=== PATIENT | female | born 1930 | race Two or more races ===

== ENCOUNTER 2018-05-22 19:14 | Inpatient (IN) | payer MEDICARE ==
[~2018-05-22] VITALS: Ht 142.2 cm; Wt 59.0 kg
[2018-05-22] MEDS ORDERED: LISINOPRIL10 MG ORAL (19:34)
[2018-05-22] MEDS ORDERED: METFORMIN HCL500 M1 ORAL (19:34)
[2018-05-22] MEDS ORDERED: FUROSEMIDE40 MG ORAL (19:34)
[2018-05-22] MEDS ORDERED: POTASSIUM CHLOR8 ME3 PO (19:34)
[2018-05-22] MEDS ORDERED: OMEPRAZOLE20 M2 ORAL (19:34)
[2018-05-22] MEDS ORDERED: LYRICA75 M1 ORAL (19:34)
[2018-05-22] MEDS ORDERED: NIFEDIPINE ER30 M2 ORAL (19:34)
[2018-05-22] MEDS ORDERED: ASPIRIN EC81 MG ORAL (19:34)
[2018-05-22] MEDS ORDERED: Sodium Chloride 500ML 500 ML IV ONE (19:44)
[2018-05-22] MEDS ORDERED: Isovue-300 100ml vial INJ PRN (19:45)
[2018-05-22] MEDS ORDERED: Morphine Sulfate 4mg/ml Inj IVP ONE ×2 (19:45→22:15)
[2018-05-22 20:00] VITALS: BP 133/53
--- NOTE | 2018-05-22 20:09 | Emergency Room Report ---
History of Present Illness General Chief Complaint: Diarrhea Source: Patient, Family Member Present Illness HPI Patient is an 88-year-old female who is complaining of abdominal pain nausea vomiting and diarrhea for the last 3 days. The patient's family states that the patient began complaining of diarrhea which then progressed with left lower quadrant abdominal pain and vomiting. They deny any fevers or chills. He denies any prior abdominal surgeries. There are no worsening or alleviating factors. The pain does radiate to the left back.The patient is also noted incidentally to have 2 ulcers to the feet one on the lateral aspect of the right and one on the lateral aspect of the left foot. Per the daughter these are both under the care of a chargeback specialist however have not healed over the last 3 years since the patient first arrived from [place]. Allergies: Coded Allergies: No Known Allergies (Unverified , 05/22/18) Patient History Past Medical History: DM, HTN Past Surgical History: none Pertinent Family History: none Social History: Denies: smoking, alcohol use, drug use Nursing Documentation-[facility] Hx Hypertension: Yes Hx Diabetes: Yes Review of Systems Constitutional: Denies: no symptoms, see HPI, chills, sweats, fever, malaise, weakness, other Eye: Denies: no symptoms, see HPI, eye pain, blurred vision, tearing, double vision, nose pain, nose congestion, acuity changes, discharge, other ENT: Denies: no symptoms, see HPI, ear pain, ear discharge, nose pain, nose congestion, throat pain, throat swelling, mouth pain, hearing loss, nasal discharge, other Respiratory: Denies: no symptoms, see HPI, cough, orthopnea, shortness of breath, stridor, wheezing, DAI, sputum, other Cardiovascular: Denies: no symptoms, see HPI, chest pain, edema, palpitations, syncope, PND, other Gastrointestinal: Reports: abdominal pain, diarrhea, nausea, vomiting; Denies: no symptoms, see HPI, constipation, melena, hematemesis, other Genitourinary: Denies: no symptoms, see HPI, discharge, dysuria, frequency, hematuria, pain, retention, incontinence, urgency, vag bleed/dc, other Musculoskeletal: Denies: no symptoms, see HPI, back pain, gout, joint pain, joint swelling, muscle pain, muscle stiffness, other Skin: Reports: see HPI; Denies: no symptoms, rash, change in color, change in hair/nails, dryness, lesions, other Neurological: Denies: no symptoms, see HPI, headache, numbness, paresthesia, seizure, tingling, tremors, focal weakness, syncope, dizziness, other Endocrine: Denies: no symptoms, see HPI, excessive sweating, flushing, intolerance to temperature, increased thirst, increased urine, unexplained weight loss, other Hematologic/Lymphatic: Denies: no symptoms, see HPI, anemia, blood clots, easy bleeding, easy bruising, swollen glands, diathesis, other Physical Exam Vital Signs Date Time Temp Pulse Resp B/P (MAP) Pulse Ox O2 Delivery O2 Flow Rate FiO2 05/22/18 19:17 97.7 78 16 107/60 92 Room Air 97.7 Sp02 EP Interpretation: reviewed, normal General Appearance: no apparent distress, alert, GCS 15, non-toxic Head: normocephalic, atraumatic Eyes: bilateral eye normal inspection, bilateral eye PERRL ENT: hearing grossly normal, normal pharynx, no angioedema, normal voice Neck: full range of motion, supple/symm/no masses Respiratory: chest non-tender, lungs clear, normal breath sounds, speaking full sentences Cardiovascular #1: regular rate, rhythm, no edema Cardiovascular #2: 2+ carotid (R), 2+ carotid (L), 2+ radial (R), 2+ radial (L) , 2+ dorsalis pedis (R), 2+ dorsalis pedis (L) Gastrointestinal: soft, no guarding, no rebound, other - Tenderness to the left lower and left upper quadrant of the abdomen with no guarding or rebound. Rectal: deferred Genitourinary: normal inspection, no CVA tenderness Musculoskeletal: back normal, gait/station normal, normal range of motion, non- tender, calf tenderness Neurologic: alert, oriented x3, responsive, motor strength/tone normal, sensory intact, speech normal Psychiatric: judgement/insight normal, memory normal, mood/affect normal, no suicidal/homicidal ideation Reflexes: 3+ bicep (R), 3+ bicep (L), 3+ tricep (R), 3+ tricep (L), 3+ knee (R) , 3+ knee (L) Skin: normal color, no rash, warm/dry, well hydrated, other - stage II ulright lateral foot, [facility] Lymphatic: no adenopathy Medical Decision Making EKG Diagnostic Results EP Interpretation: EKG at 1943-sinus rhythm, rate 76, normal axis, no acute ST or T-wave abnor Last Vital Signs Date Time Temp Pulse Resp B/P (MAP) Pulse Ox O2 Delivery O2 Flow Rate FiO2 05/22/18 19:17 97.7 78 16 107/60 92 Room Air 97.7 Thee Dawson MD May 22, 2018 20:09
[2018-05-22 20:29] LABS: BASOPHILS % (AUTO) 0.9 % (0.0-2.0); EOSINOPHILS % (AUTO) 3.1 % (0.0-3.0); HEMOGLOBIN 12.4 G/DL (12.0-16.0); LYMPHOCYTES % (AUTO) 16.3 % (20.0-45.0); MEAN CORPUSCULAR VOLUME 86 FL (80-99); MONOCYTES % (AUTO) 7.1 % (1.0-10.0); NEUTROPHILS % (AUTO) 72.6 % (45.0-75.0); PLATELET COUNT 259 K/UL (150-450); RED BLOOD COUNT 4.33 M/UL (4.20-5.40); RED CELL DISTRIBUTION WIDTH 12.5 % (11.6-14.8); WHITE BLOOD COUNT 10.8 K/UL (4.8-10.8)
[2018-05-22 20:37] LABS: ANION GAP 8 mmol/L (5-15); BLOOD UREA NITROGEN 70 mg/dL (7-18); CALCIUM 9.2 MG/DL (8.5-10.1); CARBON DIOXIDE 26 MMOL/L (21-32); CHLORIDE 99 MMOL/L (98-107); CREATININE 1.7 MG/DL (0.55-1.30); POTASSIUM 4.6 MMOL/L (3.5-5.1); SODIUM 133 MMOL/L (136-145)
[2018-05-22 20:51] LABS: ALANINE AMINOTRANSFERASE 17 U/L (12-78); ALBUMIN 3.4 G/DL (3.4-5.0); ALBUMIN/GLOBULIN RATIO 0.8 (1.0-2.7); ALKALINE PHOSPHATASE 119 U/L (46-116); ASPARTATE AMINO TRANSFERASE 18 U/L (15-37); BILIRUBIN,TOTAL 0.3 MG/DL (0.2-1.0); CKMB 0.5 NG/ML (0.0-3.6)
[2018-05-22 21:00] VITALS: BP 128/60
[2018-05-22 21:41] LABS: APPEARANCE,URINE CLEAR; BILIRUBIN, URINE NEGATIVE (NEGATIVE); COLOR,URINE PALE YELLOW; GLUCOSE, URINE (UA) NEGATIVE (NEGATIVE); KETONES,URINE NEGATIVE (NEGATIVE); LEUKOCYTE ESTERASE ,URINE NEGATIVE (NEGATIVE); NITRITE,URINE NEGATIVE (NEGATIVE); PH,URINE 5 (4.5-8.0); PROTEIN,URINE NEGATIVE (NEGATIVE); UROBILINOGEN,URINE NORMAL MG/DL (0.0-1.0)
[2018-05-22 22:07] VITALS: BP 128/76
[2018-05-23 00:12] VITALS: BP 90/46
[2018-05-23] MEDS ORDERED: Sodium Chloride 500ML 500 ML IV ONE (00:15)
[2018-05-23] MEDS: Sodium Chloride 500ML 550 ML IV SCH ×3 (02:24→05:45)
[2018-05-23 03:22] VITALS: BP 101/47
[2018-05-23] MEDS ORDERED: Milk of Magnesia 30ml Ud ORAL PRN (06:45)
[2018-05-23] MEDS ORDERED: Zolpidem 5mg tab ORAL PRN (06:45)
[2018-05-23 08:00] VITALS: BP 112/57
[2018-05-23] MEDS ORDERED: Lisinopril 10mg tab ORAL SCH (09:00)
[2018-05-23] MEDS ORDERED: metFORMIN 500mg tab ORAL SCH (09:00)
[2018-05-23] MEDS ORDERED: Furosemide 40mg tab ORAL SCH (09:00)
[2018-05-23 09:08] LABS: BASOPHILS % (AUTO) 0.6 % (0.0-2.0); EOSINOPHILS % (AUTO) 0.8 % (0.0-3.0); HEMATOCRIT 38.8 % (37.0-47.0); HEMOGLOBIN 12.9 G/DL (12.0-16.0); LYMPHOCYTES % (AUTO) 10.1 % (20.0-45.0); MEAN CORPUSCULAR VOLUME 87 FL (80-99); MONOCYTES % (AUTO) 3.9 % (1.0-10.0); NEUTROPHILS % (AUTO) 84.6 % (45.0-75.0); PLATELET COUNT 297 K/UL (150-450); RED BLOOD COUNT 4.44 M/UL (4.20-5.40); RED CELL DISTRIBUTION WIDTH 12.6 % (11.6-14.8); WHITE BLOOD COUNT 11.7 K/UL (4.8-10.8)
[2018-05-23] MEDS: Pantoprazole Inj IVP SCH (09:14)
[2018-05-23] MEDS: Aspirin EC 81mg tab ORAL SCH (09:14)
[2018-05-23] MEDS: Lyrica 75mg cap ORAL SCH (09:15)
[2018-05-23] MEDS: Heparin 5000 units/ml inj SUBQ SCH ×2 (09:20→20:57)
--- NOTE | 2018-05-23 09:21 | Diagnostic Imaging Report ---
Indication: Abdominal pain Technique: Spiral acquisitions obtained through the abdomen and pelvis. No oral contrast utilized, per emergency room physician request No IV contrast utilized, per referring physician request.. Multiplanar reconstructions were generated. Total dose length product 651.83 mGycm. CTDIvol(s) 12.77 mGy. Dose reduction achieved using automated exposure control Comparison: None Findings: Normal appendix. There are questionably colonic diverticula. No evidence of diverticulitis. No small bowel distention. No free or loculated intraperitoneal air or fluid is evident. Distal esophagus, stomach, duodenum are unremarkable. There is extensive arterial wall calcification. Lack of IV contrast limits assessment of the solid organs. The gallbladder, liver, bile ducts, pancreas, spleen, adrenals are unremarkable. There is mild bilateral hydronephrosis, and mild ectasia of the right ureter. The left ureter is not ectatic. No downstream obstructive lesion is demonstrated. No renal or ureteral calculi. No gross renal parenchymal abnormality. The bladder is somewhat distended. The uterus contains arcuate artery calcifications. No pelvic mass or adenopathy. There is edema of the bilateral hip region subcutaneous fat which is fairly focal. There is also some retrosacral and retrococcygeal edema or thickening which could represent decubitus changes. There are degenerative changes of the lumbosacral spine. There is anterior offset of L4 on L5, with out evidence of spondylolysis. The bones appear osteoporotic. The included lung bases demonstrate posterior dependent atelectatic changes. Impression: Mild bilateral hydronephrosis and mild right ureteral ectasia, significance uncertain. Presence of distended bladder indicates this could be due to chronic bladder distention. No definite acute abnormality otherwise Equivocal colonic diverticulosis. No evidence of diverticulitis Possible decubitus changes of the retrosacral and retrococcygeal region Bilateral hip region subcutaneous fat edema could also represent decubitus changes. Correlate with clinical findings Extensive degenerative spondylosis. L4 on L5 spondylolisthesis without evidence of spondylolysis This agrees with the preliminary interpretation provided overnight by [facility] teleradiology service. The CT scanner at [facility] is accredited by the [employer] and the scans are performed using protocols designed to limit radiation exposure to as low as reasonably achievable to attain images of sufficient resolution adequate for diagnostic evaluation.
[2018-05-23 09:40] LABS: ANION GAP 12 mmol/L (5-15); BLOOD UREA NITROGEN 68 mg/dL (7-18); CARBON DIOXIDE 23 MMOL/L (21-32); CHLORIDE 102 MMOL/L (98-107); CREATININE 1.7 MG/DL (0.55-1.30); POTASSIUM 4.6 MMOL/L (3.5-5.1); SODIUM 137 MMOL/L (136-145)
[2018-05-23 12:00] VITALS: BP 115/60
--- NOTE | 2018-05-23 12:00 | History and Physical Report ---
DATE OF ADMISSION: 05/22/2018 REASON FOR ADMISSION: Renal failure. HISTORY OF PRESENT ILLNESS: This is an 88-year-old female, who is fairly poor historian, presents with abdominal pain, nausea, and vomiting for the past three days. The patient with left lower quadrant abdominal discomfort. No fevers or chills. The patient with history of foot ulcers as well and she is under the care of early intervention specialist with poor healing apparently over the past three years. PAST MEDICAL HISTORY: Notable for diabetes and hypertension. MEDICATIONS: Reviewed. ALLERGIES: Reviewed. SOCIAL HISTORY: Nonsmoker and nondrinker. The patient lives with family. REVIEW OF SYSTEMS: As above. PHYSICAL EXAMINATION: GENERAL: A well-developed female, frail, elderly. VITAL SIGNS: Otherwise reviewed, bradycardic at 54. The patient is currently afebrile. HEENT: Otherwise negative. LUNGS: Fairly clear and symmetric. CARDIAC: Normal S1 and S2. Regular rate and rhythm. ABDOMEN: Overall fairly soft. No guarding. Some tenderness in the left lower quadrant, left upper quadrant. No rebound. EXTREMITIES: No cyanosis or clubbing. The wounds in the foot noted and reviewed. LABORATORY DATA: Otherwise noted and reviewed. IMPRESSION: 1. Acute renal failure, likely prerenal in nature. 2. Mild hyperglycemia. 3. Diabetes. 4. Hypertension. 5. Diabetic foot ulcers. RECOMMENDATIONS: Supportive care. Wound care. Hold Lasix for now and maintain IV hydration. Follow clinically with lab data , PT evaluation, wound care evaluation, and proceed with discharge planning once the patient is improved. Henok Garcia M.D. DR: LEYDI JOB#: [id number] CC: ELISSA
--- NOTE | 2018-05-23 14:15 | Consultation ---
DATE OF CONSULTATION: 05/23/2018 CONSULTING PHYSICIAN: Arturo Bowman M.D. REFERRING PHYSICIAN: Henok Garcia M.D. REASON FOR CONSULTATION: 1. Acute kidney injury. 2. Dehydration. HISTORY OF PRESENT ILLNESS: The patient is a pleasant 88-year-old female, who was admitted overnight for further evaluation and care of abdominal pain, nausea, vomiting, and diarrhea, that has been going on for the last three days. The patient started having diarrhea, which has progressively worsened to left lower quadrant pain and vomiting. The patient does not have any abdominal surgery. Denies any night sweats, fevers, or chills. She is still feeling ill. The patient does have ulcers on the bottom of her feet, which is being managed by wound care. However, they have not healed and the patient has just recently arrived back from [place]. ALLERGIES: No known drug allergies. PAST MEDICAL HISTORY: 1. Foot ulcers. 2. Diabetes mellitus. 3. Hypertension. PAST SURGICAL HISTORY: None. FAMILY HISTORY: Positive for hypertension and diabetes. SOCIAL HISTORY: No tobacco, alcohol, or illicit drug use. REVIEW OF SYSTEMS: NEUROLOGIC: The patient denies headache, change in vision, syncope, or presyncopal episodes. CARDIOVASCULAR: No current chest pain, palpitations, or angina. PULMONARY: No difficulty breathing, productive cough or sputum. GASTROINTESTINAL/GENITOURINARY: Nausea, vomiting, and diarrhea. ENDOCRINOLOGY: No night sweats, fevers, or chills. MUSCULOSKELETAL: The patient feeling weak, tired, and fatigued. PHYSICAL EXAMINATION: VITAL SIGNS: Blood pressure 101/47, respiratory rate 16, pulse 54, and temperature 98.0. GENERAL: The patient is awake, alert, in mild distress. HEENT: Extraocular muscles intact. No lymphadenopathy. Oropharyngeal mucosa clear and dry. CARDIOVASCULAR: S1 and S2. No rubs or gallops. PULMONARY: Clear to auscultation bilaterally. No rales, rhonchi, or wheezes. ABDOMEN: Nondistended, nontender. EXTREMITIES: No edema noted. LABORATORY DATA: Laboratories dated May 22, 2018, sodium 133, potassium 4.6, BUN 70, creatinine 1.7, glucose 148, calcium 9.2. Hemoglobin 12.4, white cell count 10.8, and platelet count 259. ASSESSMENT AND PLAN: 1. Acute kidney injury secondary to multifactorial acute tubular necrosis from volume depletion and ischemic ATN from hypotension. At this time, we will discontinue lisinopril. Avoid IV contrast if possible. Renal ultrasound to rule out the possibility of obstructive uropathy. At this time, I agree with hydration and avoidance of any further nephrotoxins. 2. Abdominal pain, nausea, and vomiting. Pain management per primary care physician. Continue IV fluids. 3. Hypotension. At this time, we will discontinue lisinopril and place hold parameters and antihypertensive medications. 4. Diabetes mellitus. Defer management to primary care physician. Let me take this opportunity to thank Dr. Garcia. I will continue to follow this patient on a daily basis. I appreciate her confidence in my nephrological service. Arturo Bowman MD DR: FAVIOLA JOB#: [id number] CC: ELISSA
[2018-05-23 16:00] VITALS: BP 120/62
[2018-05-23 20:00] VITALS: BP_SYST 128; BP_SYST 142; BP_DIAS 60; BP_DIAS 72
--- NOTE | 2018-05-23 20:21 | Consultation ---
History of Present Illness General Date patient seen: May 23, 2018 Chief Complaint: Diarrhea Reason for Consultation: bilateral lower extremity ulcers Present Illness HPI 88 year old male with multiple medical comorbidities presented with dehydration , nausea, emesis, diarrhea, and poor healing foot wounds. states he has recently returned from [place] and noted above symptoms so came to ED for evaluation. upon admission noted to have lower extremity wounds. states present for more than two years without significant improvement. has been seeing a internet specialist who applies ointment. surgery called to evaluate and help with management of wounds. patient seen, chart reviewed, patient examined. Allergies: Coded Allergies: No Known Allergies (Unverified , 05/22/18) Medication History Scheduled Aspirin Ec* (Aspirin Ec*), 81 MG ORAL DAILY, (Reported) Furosemide* (Lasix*), 40 MG ORAL DAILY, (Reported) Lisinopril* (Lisinopril*), 10 MG ORAL DAILY, (Reported) Metformin Hcl* (Metformin Hcl*), 500 MG ORAL TWICE A DAY, (Reported) Nifedipine Er* (Nifedipine Er*), 30 MG ORAL DAILY, (Reported) Omeprazole (Omeprazole), 20 MG ORAL DAILY, (Reported) Potassium Chloride (Potassium Chloride), 8 MEQ PO DAILY, (Reported) Pregabalin* (Lyrica*), 75 MG ORAL BID, (Reported) Patient History History Provided By: Patient, Medical Record, PMD Healthcare decision maker Resuscitation status Advanced Directive on File Past Medical/Surgical History Past Medical/Surgical History: (1) Ulcer of left foot (2) Ulcer of right heel (3) Diarrhea (4) Renal failure Review of Systems All Other Systems: negative except mentioned in HPI Physical Exam General Appearance: no apparent distress, alert Lines, tubes and drains: peripheral HEENT: atraumatic, mucous membranes moist, PERRL Neck: non-tender Respiratory/Chest: normal breath sounds, no respiratory distress, no accessory muscle use Cardiovascular/Chest: normal peripheral pulses, normal rate Abdomen: soft, no organomegaly, no mass Extremities: non-tender, other - pulses noted. ulcers as seen in photos Skin Exam: warm/dry Neurologic: alert, oriented x 3 Last 24 Hour Vital Signs Date Time Temp Pulse Resp B/P (MAP) Pulse Ox O2 Delivery O2 Flow Rate FiO2 05/23/18 16:00 97.9 74 18 120/62 (81) 97 97.9 05/23/18 12:00 97.4 72 18 115/60 (78) 96 97.4 05/23/18 09:14 70 112/57 05/23/18 08:45 Room Air 05/23/18 08:00 97.7 70 20 112/57 (75) 95 97.7 05/23/18 07:55 Room Air 05/23/18 03:34 98.0 54 16 101/47 100 Room Air 98.0 05/23/18 03:22 98.0 54 16 101/47 100 Room Air 98.0 05/23/18 00:12 70 14 90/46 99 Nasal Cannula 2.0 05/22/18 22:49 98.0 05/22/18 22:19 99.0 05/22/18 22:07 62 14 128/76 94 Nasal Cannula 2.0 05/22/18 21:00 99.0 64 18 128/60 94 Room Air 99.0 05/22/18 20:37 99.4 Intake and Output 05/22/18 05/23/18 19:00 07:00 Intake Total 1000 ml Balance 1000 ml IV Total 1000 ml Laboratory Tests Test 05/22/18 21:15 05/23/18 08:35 Urine Color Pale yellow Urine Appearance Clear Urine pH 5 (4.5-8.0) Urine Specific Aubrey 1.010 (1.005-1.035) Urine Protein Negative (NEGATIVE) Urine Glucose (UA) Negative (NEGATIVE) Urine Ketones Negative (NEGATIVE) Urine Occult Blood 1+ (NEGATIVE) H Urine Nitrite Negative (NEGATIVE) Urine Bilirubin Negative (NEGATIVE) Urine Urobilinogen Normal MG/DL (0.0-1.0) Urine Leukocyte Esterase Negative (NEGATIVE) Urine RBC 0-2 /HPF (0 - 2) Urine WBC 0 /HPF (0 - 2) Urine Squamous Epithelial Cells None /LPF (NONE/OCC) Urine Amorphous Sediment Few /LPF (NONE) H Urine Bacteria Occasional /HPF (NONE) White Blood Count 11.7 K/UL (4.8-10.8) H Red Blood Count 4.44 M/UL (4.20-5.40) Hemoglobin 12.9 G/DL (12.0-16.0) Hematocrit 38.8 % (37.0-47.0) Mean Corpuscular Volume 87 FL (80-99) Mean Corpuscular Hemoglobin 29.0 PG (27.0-31.0) Mean Corpuscular Hemoglobin Concent 33.3 G/DL (32.0-36.0) Red Cell Distribution Width 12.6 % (11.6-14.8) Platelet Count 297 K/UL (150-450) Mean Platelet Volume 7.1 FL (6.5-10.1) Neutrophils (%) (Auto) 84.6 % (45.0-75.0) H Lymphocytes (%) (Auto) 10.1 % (20.0-45.0) L Monocytes (%) (Auto) 3.9 % (1.0-10.0) Eosinophils (%) (Auto) 0.8 % (0.0-3.0) Basophils (%) (Auto) 0.6 % (0.0-2.0) Sodium Level 137 MMOL/L (136-145) Potassium Level 4.6 MMOL/L (3.5-5.1) Chloride Level 102 MMOL/L (98-107) Carbon Dioxide Level 23 MMOL/L (21-32) Anion Gap 12 mmol/L (5-15) Blood Urea Nitrogen 68 mg/dL (7-18) H Creatinine 1.7 MG/DL (0.55-1.30) H Estimat Glomerular Filtration Rate mL/min (>60) Glucose Level 124 MG/DL (74-106) H Calcium Level 9.0 MG/DL (8.5-10.1) Height (Feet): 4 Height (Inches): 8.00 Weight (Pounds): 130 Medications Current Medications Medications (Trade) Dose Ordered Sig/Jeanna Route PRN Reason Start Time Stop Time Status Last Admin Dose Admin Acetaminophen (Tylenol) 650 mg Q4H PRN ORAL Mild Pain/Temp > 100.5 05/23/18 06:45 06/22/18 06:44 Al Hydroxide/Mg Hydroxide (Mylanta) 30 ml Q4H PRN ORAL Abdominal cramps 05/23/18 06:45 06/22/18 06:44 Aspirin (Ecotrin) 81 mg DAILY ORAL 05/23/18 09:00 06/22/18 08:59 05/23/18 09:14 Heparin Sodium (Porcine) (Heparin 5000 units/ml) 5,000 units EVERY 12 HOURS SUBQ 05/23/18 09:00 06/22/18 08:59 05/23/18 09:20 Iopamidol (Isovue-300 100ml) 100 ml NOW PRN INJ Radiology Procedure 05/22/18 19:45 Magnesium Hydroxide (Mom) 30 ml DAILYPRN PRN ORAL Constipation 05/23/18 06:45 06/22/18 06:44 Nifedipine (Procardia XL) 30 mg DAILY ORAL 05/23/18 09:00 06/22/18 08:59 05/23/18 09:14 Pantoprazole (Protonix) 40 mg DAILY IVP 05/23/18 09:00 06/22/18 08:59 05/23/18 09:14 Pregabalin (Lyrica) 75 mg DAILY ORAL 05/23/18 09:00 06/22/18 08:59 05/23/18 09:15 Sodium Chloride 1,000 ml @ 100 mls/hr Q10H IV 05/23/18 07:00 06/22/18 06:59 05/23/18 17:06 Zolpidem Tartrate (Ambien) 5 mg HSPRN PRN ORAL Insomnia 05/23/18 06:45 05/30/18 06:44 Assessment/Plan Problem List: (1) Ulcer of left foot Assessment & Plan: 2 cm lateral left foot ulcer unstageable with eschar cap. no drainage. no signs of infection. no odor. chronic skin protectant. foam protective dressing. plain films ICD Codes: L97.529 - Non-pressure chronic ulcer of other part of left foot with unspecified severity SNOMED: [id number] Qualifiers: Qualified Codes: L97.529 - Non-pressure chronic ulcer of other part of left foot with unspecified severity (2) Ulcer of right heel Assessment & Plan: right heel two ulcers 2cm each next to each other unstageable with necrotic eschar cap no signs of infection. no odor. no drainage chronic. plain films. skin protectant. foam protective dressing. ICD Codes: L97.419 - Non-pressure chronic ulcer of right heel and midfoot with unspecified severity SNOMED: [id number] Qualifiers: Qualified Codes: L97.419 - Non-pressure chronic ulcer of right heel and midfoot with unspecified severity Status: stable Jelani Delcid May 23, 2018 20:21
[2018-05-24] VITALS: BP 130/58
--- NOTE | 2018-05-24 01:15 | Consultation ---
DATE OF CONSULTATION: 05/23/2018 UROLOGY CONSULTATION ATTENDING/CONSULTING PHYSICIAN: Henok Garcia M.D. CHIEF COMPLAINT/HISTORY OF PRESENT ILLNESS: I was asked by Dr. Garcia to evaluate this 88-year-old female regarding history of postvoid residual noted on CT scan and renal ultrasound. Briefly, the patient has a history of nausea, vomiting, and diarrhea, which has been going on for 3 to 4 days. She presented to the hospital in the setting of the same. She was found to have evidence of renal insufficiency and dehydration. A CT scan revealed somewhat moderately distended bladder with mild bilateral hydroureteronephrosis. A renal ultrasound revealed a free water volume of 500 mL and a postvoid residual of 300 mL. As such, I was asked to evaluate the patient. The patient reports a history of some difficulty emptying her bladder at times. She is not a very good historian. I cannot get much information from her. Most of this is gathered from the chart. PAST MEDICAL HISTORY: 1. Diabetes mellitus. 2. Hypertension. 3. Foot ulcerations. PAST SURGICAL HISTORY: Apparently none. MEDICATIONS: Please see the chart for current medications and administration details. ALLERGIES: No known drug allergies. SOCIAL HISTORY: Unremarkable for tobacco, alcohol, or drug use. FAMILY HISTORY: Notable for hypertension and diabetes. REVIEW OF SYSTEMS: A 12-system review of systems was essentially unremarkable outside of what is described above. PHYSICAL EXAMINATION: GENERAL: The patient is a very elderly female, awake and alert, somewhat oriented, and in no obvious distress. HEENT: NC/AT. EOMI. NECK: Supple. Full range of motion. Oropharynx clear. CHEST: Within normal limits. ABDOMEN: Soft, nontender, and nondistended. EXTREMITIES: Warm and well perfused. No cyanosis, clubbing, or edema. BACK: No CVA tenderness to percussion. NEUROLOGIC: Grossly nonfocal. LABORATORY DATA: White blood cell count 11.7, hematocrit 38.8, and platelets 297,000. Sodium 137, potassium 4.6, chloride 102, bicarbonate 23, BUN 68, creatinine 1.7, glucose 124, and calcium 9.0. LFTs within normal limits. Urinalysis, specific gravity 1.010 and pH 5.0. Dip test notable for 1+ occult blood. Microanalysis is essentially unremarkable. DIAGNOSTIC IMAGING: CT scan of the abdomen and pelvis revealed mild bilateral hydronephrosis and mild right ureteral ectasia of uncertain significance. There is moderate amount of bladder distention. No acute abnormalities otherwise noted. ASSESSMENT AND PLAN: In summary, the patient is an 88-year-old diabetic female with a history of nausea, vomiting, and diarrhea for several days duration. She presented with evidence of hypovolemia and acute tubular necrosis secondary to hypotension. She is receiving fluids for the same. Physical exam is essentially unremarkable. Laboratory data is notable for creatinine of 1.7 and a negative urinalysis. Diagnostic imaging reveals the findings described above. It is likely that this patient's renal sufficiency stems from her acute nausea, vomiting, and diarrhea and dehydration/hypotension. A postvoid residual of 300 mL while not completely insignificant would not likely drop the patient into renal failure. If the patient has some difficulty emptying her bladder, she may have some degree of neurogenic bladder secondary to diabetes. This could be evaluated as an outpatient with urodynamics if clinically warranted. For the time being, I do not feel that she needs to have a catheter in place nor is there any need for urgent genitourinary intervention. The mild bilateral hydronephrosis and ureteral ectasia are not significant findings. Thank you for allowing me to participate in the care of this unfortunate lady. Please do not hesitate to contact me for any questions that you may further have regarding her care. I will see her with you as needed. Trev Isaacs M.D. DR: SANKET JOB#: [id number] CC:
[2018-05-24 04:00] VITALS: BP 101/51
[2018-05-24 07:06] LABS: ANION GAP 7 mmol/L (5-15); BLOOD UREA NITROGEN 66 mg/dL (7-18); CALCIUM 8.3 MG/DL (8.5-10.1); CARBON DIOXIDE 25 MMOL/L (21-32); CHLORIDE 106 MMOL/L (98-107); POTASSIUM 4.8 MMOL/L (3.5-5.1); SODIUM 138 MMOL/L (136-145)
[2018-05-24 08:00] VITALS: BP 99/41
[2018-05-24] MEDS: Pantoprazole Inj IVP SCH (08:55)
[2018-05-24] MEDS: Aspirin EC 81mg tab ORAL SCH (08:57)
[2018-05-24] MEDS: Lyrica 75mg cap ORAL SCH (08:58)
[2018-05-24] MEDS: Heparin 5000 units/ml inj SUBQ SCH (09:00)
--- NOTE | 2018-05-24 09:24 | Nephrology Progress Note ---
Assessment/Plan Assessment/Plan 1. DERRICK- multifact ATN (vol dep/hypotension) and component of obstructive uropathy - Cr at 2, IVF's and place purvis 2. Mild B/L hydro with tortuous right ureter and distended bladder - place purvis and then repeat Renal US 3. N/V- per PCP 4. Dehydration/Hypotension- IVF's and Lisinopril stopped Subjective Date patient seen: May 24, 2018 Time patient seen: 09:21 ROS Limited/Unobtainable: Yes Allergies: Coded Allergies: No Known Allergies (Unverified , 05/22/18) All Systems: reviewed and negative except above Subjective Son at bedside. Patient in no overt distress Objective Last 24 Hour Vital Signs Date Time Temp Pulse Resp B/P (MAP) Pulse Ox O2 Delivery O2 Flow Rate FiO2 05/24/18 08:56 54 99/41 05/24/18 04:00 98.6 59 18 101/51 (68) 100 98.6 05/24/18 00:00 98.8 71 18 130/58 (82) 98 98.8 05/23/18 21:00 Room Air 05/23/18 20:00 98.4 79 18 142/60 (87) 95 98.4 05/23/18 16:00 97.9 74 18 120/62 (81) 97 97.9 05/23/18 12:00 97.4 72 18 115/60 (78) 96 97.4 Intake and Output 05/23/18 05/24/18 18:59 06:59 Intake Total 1300 ml 1200 ml Balance 1300 ml 1200 ml Intake Oral 400 ml IV Total 900 ml 1200 ml # Voids 2 5 Laboratory Tests 05/24/18 06:00: Sodium Level 138, Potassium Level 4.8, Chloride Level 106, Carbon Dioxide Level 25, Anion Gap 7, Blood Urea Nitrogen 66H, Creatinine 2.0H, Estimat Glomerular Filtration Rate , Glucose Level 166H, Calcium Level 8.3L Height (Feet): 4 Height (Inches): 8.00 Weight (Pounds): 130 General Appearance: WD/WN, no apparent distress EENT: PERRL/EOMI, normal ENT inspection Neck: non-tender, normal alignment Cardiovascular: normal peripheral pulses, normal rate Respiratory/Chest: chest wall non-tender, lungs clear Abdomen: normal bowel sounds, non tender, soft Edema: no edema noted Arm (L), no edema noted Arm (R), no edema noted Leg (L), no edema noted Leg (R), no edema noted Pedal (L), no edema noted Pedal (R), no edema noted Generalized Arturo Bowman M.D. May 24, 2018 09:24
--- NOTE | 2018-05-24 10:01 | Diagnostic Imaging Report ---
Indication:Elevated Bun and Creatinine. Technique: Grayscale and duplex Doppler imaging of the kidneys performed. Comparison: None Findings: There is bilateral hydronephrosis mild to moderate in degree. Bladder is distended by about 500 cc. Patient was not able to void. Right kidney is 9.6 cm. Left kidney 11.3 cm. IVC is unremarkable. IMPRESSION: Bilateral hydronephrosis probably on the basis of bladder outlet impediments or obstruction. Suggest Emmanuel catheter placement and clinical evaluation
--- NOTE | 2018-05-24 10:26 | General Progress Note ---
Assessment/Plan Assessment/Plan IMPRESSION: 1. CRF 2. Mild hyperglycemia. 3. Diabetes. 4. Hypertension. 5. Diabetic foot ulcers. PLAN d/w family needs urology and renal follow up they are aware also explained to hold procardia and metformin with renal function and low bp family aware foot care return to ER if any recurrence of symptoms findings discussed and are chronic cleared by urology Subjective Allergies: Coded Allergies: No Known Allergies (Unverified , 05/22/18) Subjective overall comfortable Objective Last 24 Hour Vital Signs Date Time Temp Pulse Resp B/P (MAP) Pulse Ox O2 Delivery O2 Flow Rate FiO2 05/24/18 08:56 54 99/41 05/24/18 08:30 Room Air 05/24/18 08:00 98.2 54 19 99/41 (60) 96 98.2 05/24/18 04:00 98.6 59 18 101/51 (68) 100 98.6 05/24/18 00:00 98.8 71 18 130/58 (82) 98 98.8 05/23/18 21:00 Room Air 05/23/18 20:00 98.4 79 18 142/60 (87) 95 98.4 05/23/18 16:00 97.9 74 18 120/62 (81) 97 97.9 05/23/18 12:00 97.4 72 18 115/60 (78) 96 97.4 Intake and Output 05/23/18 05/24/18 19:00 07:00 Intake Total 1300 ml 1200 ml Balance 1300 ml 1200 ml Intake Oral 400 ml IV Total 900 ml 1200 ml # Voids 2 5 Laboratory Tests 05/24/18 06:00: Sodium Level 138, Potassium Level 4.8, Chloride Level 106, Carbon Dioxide Level 25, Anion Gap 7, Blood Urea Nitrogen 66H, Creatinine 2.0H, Estimat Glomerular Filtration Rate , Glucose Level 166H, Calcium Level 8.3L Height (Feet): 4 Height (Inches): 8.00 Weight (Pounds): 130 Objective GENERAL: A well-developed female, frail, elderly. HEENT: Otherwise negative. LUNGS: Fairly clear and symmetric. CARDIAC: Normal S1 and S2. Regular rate and rhythm. ABDOMEN: Overall fairly soft. No guarding. Some tenderness in the left lower quadrant, left upper quadrant. No rebound. EXTREMITIES: No cyanosis or clubbing. The wounds in the foot noted and reviewed. Henok Garcia MD May 24, 2018 10:26
--- NOTE | 2018-05-24 10:48 | Diagnostic Imaging Report ---
Indication: Foot pain Comparison: None Findings: 2 views of the left foot were obtained. There is irregularity of the neck of the fifth metatarsal consistent with fracture. Correlate clinically. Soft tissue swelling noted. Hammertoes are present. The phalanges are not evaluated well on this exam. Bones are osteopenic. Vascular calcifications are present. IMPRESSION: Suspected fracture of the distal fifth metatarsal. Correlate clinically
--- NOTE | 2018-05-24 10:49 | Diagnostic Imaging Report ---
Indication: Foot Pain Comparison: None Findings: 2 views of the right foot were obtained. The bones are osteopenic. There is angulation and irregularity at the neck of the fifth metatarsal and the neck of the third metatarsal. Findings are consistent with fractures acuity indeterminate. Vascular calcifications are present. The study is limited. IMPRESSION: Suspected fractures involving the distal aspects of the third and fifth metatarsals. Correlate clinically. Study limited by osteoporosis and limited views
[2018-05-24 12:00] VITALS: BP 144/54
--- NOTE | 2018-05-24 16:27 | Diagnostic Imaging Report ---
Indication: Plantar pain ulceration and concern for osteomyelitis Technique: Right ankle/hind foot imaging utilizing multiplanar T1 fast spin-echo, proton and T2 fast spin-echo with fat saturation, and STIR. Comparison: None Findings: Bone marrow signal within the calcaneus is normal. There is subcutaneous edema present within the plantar part of the foot presumably on the basis of cellulitis. There is thickening of the plantar aponeurosis which may be due to plantar fasciitis. There is a moderate spurring of the calcaneal tuberosity. There is no abscess. Marginal spur formation and subchondral irregularity noted within portions of the subtalar joint and intertarsal joints and the ankle. Achilles tendon is unremarkable. IMPRESSION: No evidence of osteomyelitis or abscess. Nonspecific plantar subcutaneous edema presumably due to cellulitis. Plantar fasciitis suspected incidentally.
[2018-05-24 16:30] VITALS: BP 147/60
--- NOTE | 2018-05-24 16:31 | Diagnostic Imaging Report ---
Indication: Infection small wound on the lateral side of the foot near the fifth toe Technique: Left forefoot imaging utilizing multiplanar T1 fast spin-echo, proton and T2 fast spin-echo with fat saturation, and STIR. Comparison: None Findings: There is subcutaneous edema within the foot especially in the lateral part of the foot near the fifth MTP joint. There is no abscess or fluid collection identified. There is no joint effusion identified. Bone marrow signal appears normal within the osseous structures. IMPRESSION: No evidence of acute osteomyelitis or abscess. Generalized subcutaneous edema presumably on the basis of cellulitis.
--- NOTE | 2018-05-25 01:00 | Consultation ---
DATE OF CONSULTATION: 05/24/2018 PODIATRY CONSULTATION CONSULTING PHYSICIAN: César Grijalva D.P.M. HISTORY OF PRESENT ILLNESS: This is an 88-year-old female who was admitted to the hospital through the emergency room on 05/22/2018, for abdominal pain, nausea, and vomiting for 2 days. While in the hospital, the patient was examined and discovered to have bilateral foot ulcerations and I was consulted to see the patient for possible fractures of her forefoot bilaterally. PAST MEDICAL HISTORY: Remarkable for hypertension, diabetes mellitus, and renal failure. According to her son, the patient was attempting to treat her foot ulcerations during the past 3 months and made a trip to [place] with the attempt to see a specialist in order to help her heal her wounds. MEDICATIONS: While in the hospital, the patient was on heparin, Protonix, Ecotrin, Procardia, Lyrica, Tylenol, Ambien, and Mylanta. ALLERGIES: No known drug allergies. PODIATRIC PHYSICAL EXAMINATION: VASCULAR STATUS: Dorsalis pedis and posterior tibial arteries are faintly palpable bilaterally. The capillary filling time is less than 6 seconds to all digits bilaterally. Homans sign is negative in bilateral lower extremity. Mild varicosities are noted. No edema is present in bilateral lower extremity. NEUROLOGICAL: The reflexes, Achilles and patellar are measuring 1/4 bilaterally. Babinski is negative. Clonus is absent in bilateral lower extremity. Sensation, joint proprioception and vibration are diminished in bilateral foot and ankle. MUSCULOSKELETAL: Reveals bilateral somewhat reducible hammertoe deformities of digits #2 through #5. Mild bunion deformities are present. Mild cavus foot type is noted. No other structural deformities are present. DERMATOLOGICAL: Reveals bilateral ulcerations. Left foot has stage III ulcer present over the plantar lateral aspect of the fifth metatarsophalangeal joint. The ulcer has a necrotic base and measures approximately 3 x 3 cm. No exudate is noted. No odor is noted. No streaks or lymphangitis are present in left lower extremity. The right foot exhibits 2 ulcers over the lateral aspect of the midfoot and rear foot. The ulcers are stage III with necrotic eschar. No drainage or signs of infections are present. They measure approximately 2.5 x 2.5 cm and 3.2 x 2.7 cm. No streaks or lymphangitis are noted. There are no other lesions, scars, or ulcerations present bilaterally. All nails are present and dystrophic bilaterally. RADIOLOGIC EXAMINATION: Three-view foot x-ray was taken and revealed possible fracture of the fifth metatarsal on the left foot and possible fracture of the third and fifth metatarsal head of right foot. MRI of the foot and ankle reveals no fractures, no osteomyelitis or any other deformities. ASSESSMENT: 1. Peripheral vascular disease bilaterally. 2. Diabetes mellitus. 3. Diabetic neurotrophic and ischemic ulcers bilaterally. 4. Renal failure. PLAN: 1. The patient and son were consulted on the need for Vascular consultation upon discharge. The patient will contact her primary IPA doctor and will request a consultation. 2. Local wound care consisting of debridement and podiatry consult through her IPA HMO was advised. 3. Diabetic foot education was provided to the patient and son. Thank you, Dr. Garcia, for allowing me to see this patient in consultation. Peter [email or web address] DR: ARA JOB#: [id number] CC:
--- NOTE | 2018-05-26 08:52 | Discharge Summary ---
Discharge Summary Discharge Summary _ DATE OF ADMISSION: 05/22/2018 DATE OF DISCHARGE: 05/24/2018 REASON FOR ADMISSION: 88 years old female with past medical history of diabetes mellitus, hypertension , presented to emergency department complaining of nausea, vomiting, diarrhea, and abdominal pain for 3 days. She denied fever and chills. She denied prior abdominal surgeries. Abdominal pain radiated to the back. Patient reported bilateral foot ulcers. Upon evaluation vital signs were stable. Laboratory workup revealed no leukocytosis, stable hemoglobin and hematocrit. Urinalysis revealed no evidence of UTI. BUN 70 creatinine 1.7. Blood glucose 148. Troponin negative. LFT and lipase within normal limits. CT of the abdomen and pelvis revealed mild bilateral hydronephrosis and mild right ureteral ectasia, significance uncertain. Presence of distended bladder indicates this could be due to chronic bladder distention. Patient admitted with diagnoses of acute kidney injury secondary to f hypotension, dehydration, abdominal pain with nausea and vomiting, hypotension , diabetes mellitus, bilateral foot ulcers CONSULTANTS: corporate manager Dr. Bowman urologist surgery Dr. Delcid typing pool supervisor Dr. Payne HOSPITAL COURSE: Patient admitted. Patient started on the IV hydration. Renal ultrasound revealed bilateral hydronephrosis probably on the basis of bladder outlet impediments or obstruction. Per urologist, postvoid residual of 300 mL (while not completely insignificant ) would not likely drop the patient into renal failure. If the patient had some difficulty emptying her bladder, she may have some degree of neurogenic bladder secondary to diabetes. Urologist suggested outpatient evaluation with urodynamics, if clinically warranted. For the time being, urologist did not feel that she needed to have a catheter in place nor was here any need for urgent genitourinary intervention. The mild bilateral hydronephrosis and ureteral ectasia were not significant findings. Clicker Operator closely followed. Renal parameters and electrolytes were closely monitored. Nephrotoxic were avoided. Electrolytes corrected as needed. Antihypertensive medication initially stopped due to hypotension. No Lisinopril , no metformin, given renal failure. Prior to discharge BUN 66 creatinine 2. 0. Patient was able to void sufficient amounts of urine. MRI of the right ankle revealed no evidence of acute osteomyelitis or abscess, accidental finding of plantar fasciitis noted. MRI of the left food revealed no evidence of acute osteomyelitis. Surgeon seen and evaluated the patient. Wound care provided as per surgical recommendation. Network Communications Engineer seen and evaluated. The patient and her son were consulted on the need for vascular consultation upon discharge. The patient will need to contact her primary IPA doctor to request a consultation. Patient was advised on local wound care , consisting of debridement and podiatry consult through her IPA HMO. Diabetic foot education was provided to the patient and her son. Pain management provided , Lyrica started. Bowel regimen instituted Blood sugar was managed with sliding scale of insulin. DVT and GI prophylaxis provided. Patient and her son were informed about all findings and chronicity of them. Patient was advised to return to ER if any recurrence of symptoms Patient was stable for discharge with outpatient follow with primary care provider and referrals to corporate manager, typing pool supervisor, and vascular surgeon. FINAL DIAGNOSES: Acute kidney injury secondary to acute ischemic tubular necrosis due to hypotension Dehydration Chronic renal insufficiency Hypotension Abdominal pain with nausea and vomiting -resolved Diabetes mellitus Diabetic neuropathy Peripheral vascular disease Ulcer left foot Ulcer right heel DISCHARGE MEDICATIONS: See Medication Reconciliation list. DISCHARGE INSTRUCTIONS: Patient was discharged home. Follow up with primary care provider next week with referral to corporate manager.typing pool supervisor and vascular surgery for further evaluation and management. I have been assigned to dictate discharge summary for this account. I was not involved in the patient's management. Susie Hankins NP May 26, 2018 08:52
--- NOTE | 2018-05-27 16:29 | Cardiology Report ---
APPROVED REPORT EKG Measurement Heart [id number] Normal sinus rhythm with sinus arrhythmia Normal ECG
== END 2018-05-24 20:45 | disposition home or self-care (01) | DRG 683 ==
LOC: EMR 20:02 → EDBD 20:02 → 4E 23:01 → EDBEDREQ 23:16
DX: N17.0 Acute kidney failure with tubular necrosis (principal); L97.419 Non-pressure chronic ulcer of right heel and midfoot with unspecified severity; E86.0 Dehydration; I95.9 Hypotension, unspecified; L97.529 Non-pressure chronic ulcer of other part of left foot with unspecified severity; I73.9 Peripheral vascular disease, unspecified; E11.621 Type 2 diabetes mellitus with foot ulcer; R11.2 Nausea with vomiting, unspecified; R19.7 Diarrhea, unspecified; E11.65 Type 2 diabetes mellitus with hyperglycemia; I12.9 Hypertensive chronic kidney disease with stage 1 through stage 4 chronic kidney disease, or unspecified chronic kidney disease; N18.9 Chronic kidney disease, unspecified; E11.40 Type 2 diabetes mellitus with diabetic neuropathy, unspecified
CPT/HCPCS: 36415; 74176; 76770; 80048; 80053; 81003; 82553; 83690; 84484; 85025; 93005; 99285; J2405